=== PATIENT | male | born 1975 | race African-American/Black ===

== ENCOUNTER 2016-06-27 22:44 | Emergency (ER) | payer OTHER ==
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
--- NOTE | 2016-06-28 02:02 | ED MED RECONCILIATION SUMMARY ---
Patient: TOSHIA BALDERRAMA Medication Reconciliation Report [facility] VisitID: [id number] [address] [place] [address] 41y, M Registration Date/Time: 06/27/2016 Weight: 86.1 kg Height/Length: 72 in. BMI: 25.8 ALLERGIES: No Known Drug Allergy The patient's Home Medications are listed below: THE FOLLOWING MEDICATIONS NEED TO BE RECONCILED: Motrin Tylenol The source(s) of the original Home Medication information: patient The following Medications were given to the patient in the Emergency Department: None. The following Medications were prescribed to the patient: Acetaminophen (available over the counter): take according to label instructions. -- Jose Yusuf DO Hydrocodone/APAP 5mg / 325mg: take 1-2 orally every 8 hours as needed for pain. Dispense ten (10). No refill. -- Jose Yusuf DO Ibuprofen 600mg tablets: take 1 tablet orally every 8 hours as needed for pain. Dispense thirty (30). No refills. -- Jose Yusuf DO Flexeril 10 mg: Take 1 orally every 8 hours as needed for muscle spasm. Dispense twenty (20). No refills. Substitution is permissible. -- Jose Yusuf DO
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
--- NOTE | 2016-06-28 02:02 | ED MED RECONCILIATION SUMMARY ---
Patient: TOSHIA BALDERRAMA Medication Reconciliation Report [facility] VisitID: [id number] [address] [place] [address] 41y, M Registration Date/Time: 06/27/2016 Weight: 86.1 kg Height/Length: 72 in. BMI: 25.8 ALLERGIES: No Known Drug Allergy The patient's Home Medications are listed below: THE FOLLOWING MEDICATIONS NEED TO BE RECONCILED: Motrin Tylenol The source(s) of the original Home Medication information: patient The following Medications were given to the patient in the Emergency Department: None. The following Medications were prescribed to the patient: Acetaminophen (available over the counter): take according to label instructions. -- Jose Yusuf DO Hydrocodone/APAP 5mg / 325mg: take 1-2 orally every 8 hours as needed for pain. Dispense ten (10). No refill. -- Jose Yusuf DO Ibuprofen 600mg tablets: take 1 tablet orally every 8 hours as needed for pain. Dispense thirty (30). No refills. -- Jose Yusuf DO Flexeril 10 mg: Take 1 orally every 8 hours as needed for muscle spasm. Dispense twenty (20). No refills. Substitution is permissible. -- Jose Yusuf DO
--- NOTE | 2016-06-28 02:02 | ED MAR SUMMARY ---
..... Medication Administration Record [facility] [address] [place], [place] [id number] Patient: TOSHIA BALDERRAMA Visit ID: [id number] 41y, M Weight: 86.1 kg Height/Length: 72 in BMI: 25.8 ALLERGIES: No Known Drug Allergy
--- NOTE | 2016-06-28 02:02 | ED MAR SUMMARY ---
..... Medication Administration Record [facility] [address] [place], [place] [id number] Patient: TOSHIA BALDERRAMA Visit ID: [id number] 41y, M Weight: 86.1 kg Height/Length: 72 in BMI: 25.8 ALLERGIES: No Known Drug Allergy
== END 2016-06-27 23:45 | disposition home or self-care (01) ==
LOC: ED SRH 22:44
DX: S39.012D Strain of muscle, fascia and tendon of lower back, subsequent encounter (principal); S20.219D Contusion of unspecified front wall of thorax, subsequent encounter; G44.201 Tension-type headache, unspecified, intractable; V43.52XD Car driver injured in collision with other type car in traffic accident, subsequent encounter